=== PATIENT | male | born 1975 | race Caucasian/White ===

== ENCOUNTER 2023-10-27 09:18 | Emergency (ER) | payer BC, SELFPAY ==
[2023-10-27 09:49] VITALS: BP 108/80; PULSE 74; RESP 16; TEMP 36.7; O2SAT 98; BMI 21.7
[2023-10-27 10:53] LABS: MANUAL DIFF FLAG NO
[2023-10-27 10:55] LABS: Basophils Absolute Auto 0.1 X10*3/uL (0.0-0.2); Basophils Percent Auto 1.1 % (0-2); Eosinophils Absolute Auto 0.1 X10*3/uL (0.0-0.4); Eosinophils Percent Auto 2.2 % (0-4); Hematocrit 44.2 % (42.0-52.0); Hemoglobin 15.5 g/dl (14.0-18.0); Imm Gran Abs Auto 0.02 X10*3/uL (0.00-0.03); Imm Gran Pct Auto 0.4 % (0.0-0.4); Lymphocytes Absolute Auto 1.3 X10*3/uL (1.2-4.9); Mean Corpuscular HGB Conc 35.1 g/dl (31.0-36.0); Mean Corpuscular Hemoglobin 29.3 pg (27.0-33.0); Mean Corpuscular Volume 83.6 fL (80.0-98.0); Mean Platelet Volume 9.7 fL (9.4-12.4); Monocytes Absolute Auto 0.5 X10*3/uL (0.1-1.2); Neutrophils Absolute Auto 2.6 x10*3/uL (2.0-8.3); Neutrophils Percent Auto 58.3 % (45-73); Platelet Count 227 X10*3/uL (160-400); Red Blood Count 5.29 X10*6/uL (4.60-5.80); Red Cell Distribution Width 12.4 % (11.0-16.0); White Blood Count 4.5 X10*3/uL (4.8-10.8)
[2023-10-27 11:10] LABS: Alanine Aminotransferase 14 U/L (0-40); Albumin Level 4.5 g/dL (3.5-5.0); Alkaline Phosphatase 38 U/L (39-117); Anion Gap 11 (12-20); Aspartate Amino Transferase 16 U/L (5-37); Bilirubin Total 0.9 mg/dL (0.0-1.0); Blood Urea Nitrogen 8 mg/dL (9-16); Calcium 9.3 mg/dL (8.4-10.2); Carbon Dioxide 29 mmol/L (22-29); Chloride 105 mmol/L (96-108); Creatinine Clr Calc Pharmacy 116.7; Estimated Glomerular Filt Rate > 60; Glucose Random 96 mg/dL (60-115); Lipase 27 U/L (8-78); Potassium 4.3 mmol/L (3.3-5.1); Sodium 141 mmol/L (135-145); Total Protein 6.9 g/dL (6.5-8.0)
== END 2023-10-27 18:33 | disposition left against medical advice (07) ==
PROVIDERS: Emergency Provider Emergency Medicine; PCP Internal Medicine
DX: R10.9 Unspecified abdominal pain (principal)
CPT/HCPCS: 36415; 80053; 83690; 85025; 99281; 99283

== ENCOUNTER 2023-12-23 10:16 | Outpatient (AMB) | payer BC, SELFPAY ==
[2023-12-23 10:19] VITALS: BP 110/70; PULSE 75; O2SAT 97; BMI 21.3
--- NOTE | 2023-12-23 10:19 | MHC.PC.OV ---
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 Accompanied by: Self / Same As Patient Allergies No Known Allergies [No Known Allergies*] Allergy (Verified 12/23/23 10:43) Medication List - Last Reconciled 12/23/23 by Edison Coreas MD psyllium husk (Metamucil) 1 tbsp PO BID Tobacco use date assessed: 12/23/23 Dental Screening Dental Screen Date: 12/23/23 Did you have a dental visit in the last 12 months?: Yes Did you have a dental problem in the last 6 months where you did not have access to dental care?: No Was dental information given to patient?: Patient has dentist HPI NPV/requesting phy HPI Details Patient comes in to establish care - is a new patient to the practice Patient states that he used to see Dr. Mccabe but he has not been back to see him in over 15 years as he states that he was doing very well without any issues until recently Relates that he has been experiencing frequent/recurrent epigastric pains for at least the past 3 months He denies any associated nausea or vomiting with his abdominal pain He reportedly went to the ER at [facility] for the same complaint about a month ago and had an abdominal CT done that supposedly came out negative He tried to get in to see gastroenterology in a couple of places locally but was advised that he will need to get a referral from his PCP first States that he was finally able to schedule an appointment with a truck driver salesperson up in [place] who did not require a PCP referral - states that he was seen yesterday and advised that they will be scheduling him for EGD as well as a screening colonoscopy soon Notes that his stools have also been somewhat irregular in appearance lately although he reports having bowel movements daily (sometimes more than once a day and feels like he is going more than normal) States that he has tried taking OTC Miralax and Pepcid recently with no significant relief or improvement of his symptoms He has been taking OTC Metamucil BID more recently and states that this seems to be helping slightly Adds that he also ran into some poison bryant this past weekend while working out in his yard and he currently has some itchy poison bryant rash all over, especially over his abdomen and a few lesions on both of his forearms He denies any headaches or dizziness Denies any chest pains, no SOB He also denies any acute urinary symptoms [facility] Medical History (Updated 12/23/23 @ 11:08 by Edison Coreas MD) No pertinent past medical history Surgical History (Updated 12/23/23 @ 10:47 by Edison Coreas MD) No pertinent past surgical history Family History (Updated 12/23/23 @ 10:24 by KARL Gaona) Father Prostate cancer Social History (Updated 12/23/23 @ 10:27 by KARL Gaona) Alcohol intake: current Alcohol intake frequency: other Patient Tobacco Use Status: Never used Tobacco e-Cigarette/Vaping Use: Never Used Current occupational status: employed Cognitive needs: No Hearing needs: No Vision needs: No Questionnaire PHQ-9 Over the last 2 weeks, how often have you been bothered by any of the following problems? 1. Little interest or pleasure in doing things: not at all 2. Feeling down, depressed, or hopeless: not at all 3. Trouble falling or staying asleep, or sleeping too much: not at all 4. Feeling tired or having little energy: not at all 5. Poor appetite or overeating: not at all 6. Feeling bad about yourself - or that you are a failure or have let yourself or your family down: not at all 7. Trouble concentrating on things, such as reading the newspaper or watching television: not at all 8. Moving or speaking so slowly that other people could have noticed. Or the opposite - being so fidgety or restless that you have been moving around a lot more than usual: not at all 9. Thoughts that you would be better off or of hurting yourself in some way: not at all Total score: 0 Depression Screening Interpretation: Negative Depression Screening Done: Yes 89056 - PHQ-9 Billing: Yes Source: Developed by Drs. Afshin Sotelo, Leila Nogueira, Chuy Schaffer and colleagues, with an educational liam from [employer]. Thrive Questionnaire Date Thrive assessed: 12/23/23 I am a: Patient What is your living situation today?: I have a steady place to live Within the past 12 months, did the food you bought not last and you didn't have the money to get more?: Never true Within the past 12 months, did you worry whether your food would run out before you got money to buy more?: Never true Do you have trouble paying for medicines?: No Do you have trouble getting transportation to medical appointments?: No Do you have trouble paying your heating and electricity bill?: No Do you have trouble taking care of your child, family member or friend?: No Do you have trouble with day-to-day activities such as bathing, preparing meals, shopping, managing finances, etc.?: No Are you currently unemployed and looking for a job?: No Are you interested in more education?: No Please select the resources that you would like help with: None Currently or been in a relationship where the following occur: no concerns reported THRIVE Score: 0 AUDIT C Alcohol Use Questionnaire (AUDIT-C) 1. How often do you have a drink containing alcohol?: Never 3. How often do you have six or more drinks on one occasion?: Never Total Score: 0 Score Reviewed/Action Taken: Yes NUSRAT-7 AMB Questionnaire NUSRAT-7 Date NUSRAT - 7 assessed: 12/23/23 Feeling nervous, anxious, or on edge: 0 = Not at all Not being able to stop or control worryin = Not at all Worrying too much about different things: 0 = Not at all Trouble relaxin = Not at all Being so restless that it is hard to sit still: 0 = Not at all Becoming easily annoyed or irritable: 0 = Not at all Feeling afraid as if something awful might happen: 0 = Not at all Total NUSRAT-7 score (0-4 normal; 5-9 mild; 10-14 moderate; 15-21 severe): 0 Source: Developed by Drs. Afshin Sotelo, Leila Nogueira, Chuy Schaffer and colleagues, with an educational liam from [employer]. Review of Systems Const Denies chills, Denies fatigue, Denies fever(s), Denies headache(s), Denies malaise and Denies weakness Eyes Denies blurry vision, Denies change in vision, Denies irritation and Denies itchy eyes ENT Denies dysphagia, Denies dizziness, Denies otalgia, Denies headache(s), Denies nasal congestion, Denies neck pain, Denies odynophagia and Denies sore throat Card Denies chest pain, Denies rapid heart rate, Denies irregular heart rhythm, Denies palpitations and Denies dyspnea Resp Denies chest congestion, Denies cough, Denies dyspnea and Denies wheezing GI Reports as per HPI, Reports abdominal pain (recurrent, over the epigastric area for the past month or so), Denies bloating, Denies hematochezia, Reports constipation (see HPI for details), Denies dysphagia, Denies heartburn, Denies diarrhea, Denies nausea, Denies odynophagia and Denies vomiting Denies hematuria, Denies difficulty urinating, Denies dysuria, Denies urinary frequency and Denies urinary urgency Musc Denies back pain, Denies arthralgias, Denies joint swelling, Denies muscle weakness and Denies neck pain Skin/Breast Denies change in pigmentation, Reports lesions, Reports rash (scattered poison bryant rash all over, especially over his abdomen) and Denies unusual bruising Neuro Denies dizziness, Denies headache(s), Denies paresthesias and Denies weakness Endo Denies fatigue and Denies palpitations Aller/Immun Denies itchy eyes and Denies wheezing Physical exam (Primary Care) Vital Signs: Last Vital Signs Pulse 75 12/23/23 10:19 BP 110/70 12/23/23 10:19 Pulse Ox 97 12/23/23 10:19 Oxygen Delivery Method Room Air 12/23/23 10:19 BMI result Body Mass Index 21.3 Tobacco/Smoking Status: Tobacco use Status Tobacco use date assessed 12/23/23 12/23/23 10:22 Patient Tobacco Use Status Never used Tobacco 12/23/23 10:27 e-Cigarette/Vaping Use Never Used 12/23/23 10:27 PHQ-9: PHQ-9 Score PHQ-9: Total score 0 12/23/23 10:22 Depression Screening Interpretation: Negative Thrive Assessment: Date of Thrive Assessment Date Thrive assessed 12/23/23 12/23/23 10:22 Currently or been in a relationship where the following occur: no concerns reported Const General: no acute distress, alert and awake Orientation/consciousness: patient oriented x3 [facility] Head: Yes normocephalic and Yes atraumatic Ears: external ears normal, TM's normal bilaterally and EAC's normal General nose exam: No nasal discharge present Face and sinus: Yes normal facial exam and Yes sinuses nontender Teeth and gingiva: dentition normal Throat: Yes posterior oropharynx normal and Yes tonsils normal (no TP congestion) Eyes Eyelids: Yes eyelids normal Conjunctivae: conjunctivae normal Pupils: Equal, round and reactive pupils present EOM: EOMs intact bilaterally Neck Neck: Yes no lymphadenopathy and Yes supple Thyroid: Thyroid normal Resp Auscultation: clear to auscultation bilaterally, no rales and no wheezes Cardio Rate: regular rate Rhythm: regular rhythm Heart sounds: no murmurs GI Palpation (GI): Soft to palpation, nontender (but (+) mild epigastric discomfort on deep palpation), no guarding, No hepatosplenomegaly present and No Rebound tenderness present Auscultation: normal bowel sounds General: Yes no CVA tenderness Back/Spine/Pelvis Back: no CVA tenderness Thoracic/Lumbar Spine: thoracic and lumbar spine normal to inspection Skin Other: (+) large area of erythematous patchy rash over his entire abdomen and a few scattered erythematous papular lesions over both forearms Neuro General: patient oriented x3, moves all extremities, no focal motor deficits and CN's II-XI intact bilaterally Cranial nerves: Yes Equal, round and reactive pupils present Cognition (Neuro): normal cognition Gait exam (Neuro): Normal gait present Extrem General: Yes no clubbing, cyanosis or edema Assessment and Plan Assessment & Plan (1) Annual physical exam: Code(s): Z00.00 - Encounter for general adult medical examination without abnormal findings Plan: Check labs He is currently awaiting scheduling for his screening colonoscopy with GI in [place] (2) Gastritis: Code(s): K29.70 - Gastritis, unspecified, without bleeding Qualifiers: Gastritis type: unspecified gastritis Chronicity: unspecified Gastritis bleeding: without bleeding Qualified Code(s): K29.70 - Gastritis, unspecified, without bleeding Plan: Discussed dietary restrictions Will start him for now on Omeprazole 20 mg QD Reports that he was seen by GI in [place] yesterday and was advised that they will be scheduling him for EGD and colonoscopy soon for further evaluation (3) Constipation: Code(s): K59.00 - Constipation, unspecified Qualifiers: Constipation type: unspecified constipation type Qualified Code(s): K59.00 - Constipation, unspecified Plan: Patient is encouraged on increased oral fluids and dietary fiber to help regulate his bowel movements better Can continue with OTC Metamucil powder BID for now Will be scheduled also for screening colonoscopy by GI, whom he just saw in [place] yesterday (4) Poison bryant dermatitis: Code(s): L23.7 - Allergic contact dermatitis due to plants, except food Plan: Will start him on Prednisone 40 mg QD x 5 days He is instructed to take some OTC Benadryl as well - can take 25 mg 1 to 2 tablets TID PRN until the rash and itching clears up but cautioned that the Rx can cause drowsiness Plan Follow up in 6 months Orders: Orders Complete Blood Count Auto Diff Today D64.9 - Anemia, unspecified, Z00.00 - Encounter for general adult medical examination without abnormal findings Comprehensive [place]. Panel Fast Today E78.00 - Pure hypercholesterolemia, unspecified, Z00.00 - Encounter for general adult medical examination without abnormal findings Lipid Panel Today E78.00 - Pure hypercholesterolemia, unspecified, Z00.00 - Encounter for general adult medical examination without abnormal findings Vitamin D 25-OH Total Today E55.9 - Vitamin D deficiency, unspecified, Z00.00 - Encounter for general adult medical examination without abnormal findings Hemoglobin A1c Today E11.9 - Type 2 diabetes mellitus without complications, Z00.00 - Encounter for general adult medical examination without abnormal findings TSH reflex Free T4 Today E78.00 - Pure hypercholesterolemia, unspecified, Z00.00 - Encounter for general adult medical examination without abnormal findings UA CC w/rflx Micro + Cult Today R30.0 - Dysuria, Z00.00 - Encounter for general adult medical examination without abnormal findings Medications: New omeprazole 20 mg PO DAILY 30 days 30 caps 3RF K29.70 - Gastritis, unspecified, without bleeding prednisone 40 mg (2 x 20 mg) PO DAILY 5 days 10 tabs 0RF L23.7 - Allergic contact dermatitis due to plants, except food Coding Level of Care Code New Pt Prev Care 40-64y(24818) Diagnoses Annual physical exam Z00.00 Gastritis without bleeding, unspecified chronicity, unspecified gastritis type K29.70 Gastritis type: unspecified gastritis Chronicity: unspecified Gastritis bleeding: without bleeding Constipation, unspecified constipation type K59.00 Constipation type: unspecified constipation type Poison bryant dermatitis L23.7
== END 2023-12-23 11:30 | disposition home or self-care (01) ==
PROVIDERS: PCP Internal Medicine; Visit Provider Internal Medicine
DX: Z00.00 Encounter for general adult medical examination without abnormal findings (principal); K29.70 Gastritis, unspecified, without bleeding; K59.00 Constipation, unspecified; L23.7 Allergic contact dermatitis due to plants, except food
CPT/HCPCS: 99386

== ENCOUNTER 2024-01-09 09:20 | Outpatient (REF) | payer BC, SELFPAY ==
[2024-01-09 09:31] LABS: MANUAL DIFF FLAG NO
[2024-01-09 10:28] LABS: Basophils Absolute Auto 0.1 X10*3/uL (0.0-0.2); Eosinophils Absolute Auto 0.2 X10*3/uL (0.0-0.4); Eosinophils Percent Auto 3.1 % (0-4); Hematocrit 44.3 % (42.0-52.0); Hemoglobin 15.2 g/dl (14.0-18.0); Imm Gran Abs Auto 0.02 X10*3/uL (0.00-0.03); Imm Gran Pct Auto 0.4 % (0.0-0.4); Lymphocytes Absolute Auto 1.3 X10*3/uL (1.2-4.9); Lymphocytes Percent Auto 25.6 % (20-40); Mean Corpuscular HGB Conc 34.3 g/dl (31.0-36.0); Mean Corpuscular Hemoglobin 29.1 pg (27.0-33.0); Mean Corpuscular Volume 84.9 fL (80.0-98.0); Mean Platelet Volume 10.3 fL (9.4-12.4); Monocytes Absolute Auto 0.5 X10*3/uL (0.1-1.2); Neutrophils Absolute Auto 2.9 x10*3/uL (2.0-8.3); Neutrophils Percent Auto 59.9 % (45-73); Platelet Count 213 X10*3/uL (160-400); Red Blood Count 5.22 X10*6/uL (4.60-5.80); Red Cell Distribution Width 12.5 % (11.0-16.0); White Blood Count 4.9 X10*3/uL (4.8-10.8)
[2024-01-09 10:33] LABS: Estimated Average Glucose 103 mg/dL; Hemoglobin A1c % 5.2 % (<6.0)
[2024-01-09 11:12] LABS: Appearance Urine Clear; Color Urine Yellow; Glucose Urine UA Negative (Negative); Leukocyte Esterase Urine Negative (Negative); Nitrite Urine Negative (Negative); PH 6.5 (5.0-9.0); Urine Blood Negative (Negative); Urine Ketones Negative (Negative); Urine Protein Negative (Neg-Trace)
[2024-01-09 11:33] LABS: Alanine Aminotransferase 15 U/L (0-40); Albumin Level 4.4 g/dL (3.5-5.0); Alkaline Phosphatase 38 U/L (39-117); Anion Gap 13 (12-20); Aspartate Amino Transferase 15 U/L (5-37); Bilirubin Total 0.7 mg/dL (0.0-1.0); Blood Urea Nitrogen 18 mg/dL (9-16); Calcium 9.6 mg/dL (8.4-10.2); Carbon Dioxide 26 mmol/L (22-29); Chloride 106 mmol/L (96-108); Cholesterol 197 mg/dL (<200); Estimated Glomerular Filt Rate > 60; Glucose Fasting 93 mg/dL (60-99); HDL Cholesterol 58 mg/dL (>40); LDL Cholesterol Calculated 129 mg/dL (<100); Sodium 141 mmol/L (135-145); Total Protein 6.8 g/dL (6.5-8.0); Triglycerides 50 mg/dL (<150)
[2024-01-09 11:51] LABS: TSH reflex Free T4 2.24 uIU/mL (0.32-4.0); Vitamin D 25-OH Total 36.3 ng/mL (>30)
== END 2024-01-09 09:21 | disposition home or self-care (01) ==
LOC: HO.LAB 09:20
PROVIDERS: PCP Internal Medicine; Visit Provider Internal Medicine
DX: Z00.00 Encounter for general adult medical examination without abnormal findings (principal); E78.00 Pure hypercholesterolemia, unspecified; D64.9 Anemia, unspecified; E55.9 Vitamin D deficiency, unspecified; E11.9 Type 2 diabetes mellitus without complications; R30.0 Dysuria
CPT/HCPCS: 36415; 80053; 80061; 81003; 82306; 83036; 84443; 85025

== ENCOUNTER 2024-06-28 16:34 | Outpatient (AMB) | payer BC, SELFPAY ==
[2024-06-28 16:47] VITALS: BP 108/86; PULSE 80; O2SAT 97; BMI 20.6
--- NOTE | 2024-06-28 16:47 | A.OFFPC_ITS ---
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 Accompanied by: Self / Same As Patient Allergies No Known Allergies [No Known Allergies*] Allergy (Verified 06/28/24 17:02) Medication List - Last Reconciled 06/28/24 by Edison Coreas MD famotidine 20 mg PO BID PRN omeprazole 20 mg PO DAILY 30 days psyllium husk (Metamucil) 1 tbsp PO BID Tobacco use date assessed: 12/23/23 Dental Screening Dental Screen Date: 12/23/23 HPI gastritis HPI Details Patient comes in today for his follow-up visit States that he feels okay He had his EGD and colonoscopy done back on 03/17/2024 - was found to have gastritis on EGD and has since been started on famotidine 20 mg BID PRN in addition to his omeprazole 20 mg QD His colonoscopy came back normal except for some internal hemorrhoids He also reportedly had some biopsies done from his gastric mucosa and duodenum as well as his colon, all of which came back normal He denies any headaches or dizziness Denies any chest pains, no increased shortness of breath No nausea/vomiting, no abdominal pain - states that his GI symptoms have improved a lot with his Rx No change in bowel habits noted PFSH Medical History (Updated 06/29/24 @ 03:10 by Edison Coreas MD) Poison bryant dermatitis Gastritis Surgical History (Updated 06/29/24 @ 03:11 by Edison Coreas MD) History of esophagogastroduodenoscopy (EGD) History of colonoscopy Family History Father Prostate cancer Social History Housing: House Alcohol intake: current Alcohol intake frequency: other Patient Tobacco Use Status: Never used Tobacco e-Cigarette/Vaping Use: Never Used Current occupational status: employed Cognitive needs: No Hearing needs: No Vision needs: No Questionnaire Thrive Questionnaire Date Thrive assessed: 12/23/23 NUSRAT-7 AMB Questionnaire NUSRAT-7 Date NUSRAT - 7 assessed: 12/23/23 Source: Developed by Drs. Afshin Sotelo, Leila Nogueira, Chuy Schaffer and colleagues, with an educational liam from [employer]. Review of Systems Const Denies chills, Denies fatigue, Denies fever(s) and Denies headache(s) ENT Denies dysphagia, Denies dizziness, Denies otalgia, Denies headache(s), Denies neck pain, Denies odynophagia and Denies sore throat Card Denies chest pain, Denies irregular heart rhythm, Denies palpitations and Denies dyspnea Resp Denies chest congestion, Denies cough and Denies dyspnea GI Denies abdominal pain, Denies hematochezia, Reports constipation, Denies dysphagia, Reports heartburn (at times), Denies diarrhea, Denies nausea, Denies odynophagia and Denies vomiting Denies hematuria, Denies difficulty urinating, Denies dysuria and Denies urinary frequency Musc Denies back pain, Denies arthralgias and Denies neck pain Neuro Denies dizziness, Denies headache(s) and Denies paresthesias Endo Denies fatigue and Denies palpitations Physical exam (Primary Care) Vital Signs: Last Vital Signs Pulse 80 06/28/24 16:47 BP 108/86 06/28/24 16:47 Pulse Ox 97 06/28/24 16:47 Oxygen Delivery Method Room Air 06/28/24 16:47 BMI result Body Mass Index 20.6 Tobacco/Smoking Status: Tobacco use Status Tobacco use date assessed 12/23/23 06/28/24 16:48 Patient Tobacco Use Status Never used Tobacco 06/28/24 16:48 e-Cigarette/Vaping Use Never Used 06/28/24 16:48 Thrive Assessment: Date of Thrive Assessment Date Thrive assessed 12/23/23 06/28/24 16:48 Const General: no acute distress and alert HENMT Ears: TM's normal bilaterally and EAC's normal Throat: Yes posterior oropharynx normal and Yes tonsils normal (no TP congestion) Neck Neck: Yes no lymphadenopathy and Yes supple Thyroid: Thyroid normal Resp Auscultation: clear to auscultation bilaterally, no rales and no wheezes Cardio Rate: regular rate Rhythm: regular rhythm Heart sounds: no murmurs GI Palpation (GI): Soft to palpation and nontender Auscultation: normal bowel sounds General: Yes no CVA tenderness Back/Spine/Pelvis Back: no CVA tenderness Thoracic/Lumbar Spine: thoracic and lumbar spine normal to inspection and No lumbar spinal tenderness Skin Rashes: no rashes Extrem General: Yes no clubbing, cyanosis or edema Office Procedures Flu Questionnaire Does the patient have a severe egg allergy?: No Immunizations Fluarix Triv [id number] (PF) 45 mcg (15 mcg x 3)/0.5 mL IM syringe Performing Provider: Edison Coreas MD [facility] Documented (not given) by: CHRISTOPHER Cooper on 06/28/24 16:49 Reason Not Given: Patient Refused Coding Level of Care Code Est Pt Level 3 (17899) Diagnoses Gastritis without bleeding, unspecified chronicity, unspecified gastritis type K29.70 Chronicity: unspecified Gastritis bleeding: without bleeding Gastritis type: unspecified gastritis Constipation, unspecified constipation type K59.00 Constipation type: unspecified constipation type Assessment & Plan Assessment & Plan (1) Gastritis: Code(s): K29.70 - Gastritis, unspecified, without bleeding Category: Medical Qualifiers: Chronicity: unspecified Gastritis bleeding: without bleeding Gastritis type: unspecified gastritis Qualified Code(s): K29.70 - Gastritis, unspecified, without bleeding Plan: Dietary restrictions reinforced EGD done in March 2024 revealed (+) findings of gastritis Biopsies done during his EGD have reportedly come back negative Continue Omeprazole 20 mg QD and Famotidine 20 mg BID PRN Follow up with GI as scheduled (2) Constipation: Code(s): K59.00 - Constipation, unspecified Category: Medical Qualifiers: Constipation type: unspecified constipation type Qualified Code(s): K59.00 - Constipation, unspecified Plan: Patient is encouraged again on increased oral fluids and dietary fiber Continue Metamucil BID PRN Plan To return in December 2024 for his next annual physical examination Patient is reminded to try getting his labs done before he comes in for his annual physical exam in December 2024 Orders: Orders Lipid Panel 6 Months E78.00 - Pure hypercholesterolemia, unspecified, Z00.00 - Encounter for general adult medical examination without abnormal findings UA CC w/rflx Micro + Cult 6 Months R30.0 - Dysuria, Z00.00 - Encounter for general adult medical examination without abnormal findings Influenza [id number] Immunization 06/28/24 Z23 - Encounter for immunization Complete Blood Count Auto Diff 6 Months D64.9 - Anemia, unspecified, Z00.00 - Encounter for general adult medical examination without abnormal findings Comprehensive [place]. Panel Fast 6 Months E78.00 - Pure hypercholesterolemia, unspecified, Z00.00 - Encounter for general adult medical examination without abnormal findings TSH reflex Free T4 6 Months E78.00 - Pure hypercholesterolemia, unspecified, Z00.00 - Encounter for general adult medical examination without abnormal f indings Vitamin D 25-OH Total 6 Months E55.9 - Vitamin D deficiency, unspecified, Z00.00 - Encounter for general adult medical examination without abnormal findings
== END 2024-06-28 17:14 | disposition home or self-care (01) ==
PROVIDERS: PCP Internal Medicine; Visit Provider Internal Medicine
DX: K29.70 Gastritis, unspecified, without bleeding (principal); K59.00 Constipation, unspecified

== ENCOUNTER → 2024-06-28 16:34 | Outpatient (BNVA) | payer BC, SELFPAY | PROVIDERS: PCP Internal Medicine; Visit Provider Internal Medicine | DX: K29.70 Gastritis, unspecified, without bleeding (principal); K59.00 Constipation, unspecified; Z79.899 Other long term (current) drug therapy | CPT/HCPCS: 90471 ==

== ENCOUNTER 2024-07-30 16:22 | Outpatient (AMB) | payer BC, SELFPAY ==
--- NOTE | 2024-07-30 16:23 | MHC.PC.OV ---
Intake Visit Reasons: Itchy eye irritation/ Possible pink eye Tripe Washer Required: No Accompanied by: Self / Same As Patient Allergies No Known Allergies [No Known Allergies*] Allergy (Verified 07/30/24 16:59) Medication List - Last Reconciled 07/30/24 by Edison Coreas MD famotidine 20 mg PO BID PRN omeprazole 20 mg PO DAILY 30 days polymyxin B sulf-trimethoprim 10,000 unit- 1 mg/mL 1 drp ophthalmic (eye) QID 7 days psyllium husk (Metamucil) 1 tbsp PO BID Tobacco use date assessed: 07/30/24 Dental Screening Dental Screen Date: 07/30/24 Did you have a dental visit in the last 12 months?: Yes Did you have a dental problem in the last 6 months where you did not have access to dental care?: No Was dental information given to patient?: Patient has dentist HPI Itchy eye irritation/ Possible pink eye HPI Details Patient's consultation today is done over video conference (iPhone/iPad/XbyMe/Pathgather) - this is a TELEHEALTH visit Patient's current medications have been reviewed and verified with patient and/or caregiver/proxy and have been updated accordingly in the medication list Patient reports experiencing symptoms of eye irritation and redness in both eyes for the past couple of days Relates (+) difficulty opening his eyes when waking up in the morning for the past day or two, though there is no significant crusting of his eyes noted States that his 9-month-old son was just diagnosed with conjunctivitis about a week ago, likely after exposure to someone with pinkeye at preschool, and his other child also came down with similar symptoms a couple of days later Additionally, patient describes experiencing symptoms mild sore throat and nasal congestion without fever He denies any chest pains, no increased SOB No nausea/vomiting, no abdominal pain No change in bowel habits noted States that he has been treating his symptoms with [id number] ibuprofen with some relief overall [facility] Medical History Poison bryant dermatitis Gastritis Surgical History History of esophagogastroduodenoscopy (EGD) History of colonoscopy Family History Father Prostate cancer Social History Housing: House Alcohol intake: current Alcohol intake frequency: other Patient Tobacco Use Status: Never used Tobacco e-Cigarette/Vaping Use: Never Used Current occupational status: employed Cognitive needs: No Hearing needs: No Vision needs: No Questionnaire PHQ-9 Over the last 2 weeks, how often have you been bothered by any of the following problems? 1. Little interest or pleasure in doing things: not at all 2. Feeling down, depressed, or hopeless: not at all 3. Trouble falling or staying asleep, or sleeping too much: not at all 4. Feeling tired or having little energy: not at all 5. Poor appetite or overeating: not at all 6. Feeling bad about yourself - or that you are a failure or have let yourself or your family down: not at all 7. Trouble concentrating on things, such as reading the newspaper or watching television: not at all 8. Moving or speaking so slowly that other people could have noticed. Or the opposite - being so fidgety or restless that you have been moving around a lot more than usual: not at all 9. Thoughts that you would be better off or of hurting yourself in some way: not at all Total score: 0 Depression Screening Interpretation: Negative Depression Screening Done: Yes 08832 - PHQ-9 Billing: Yes Source: Developed by Drs. Afshin Sotelo, Leila Nogueira, Chuy Schaffer and colleagues, with an educational liam from [employer]. Thrive Questionnaire Date Thrive assessed: 07/30/24 I am a: Patient What is your living situation today?: I have a steady place to live Within the past 12 months, did the food you bought not last and you didn't have the money to get more?: Never true Within the past 12 months, did you worry whether your food would run out before you got money to buy more?: Never true Do you have trouble paying for medicines?: No Do you have trouble getting transportation to medical appointments?: No Do you have trouble paying your heating and electricity bill?: No Do you have trouble taking care of your child, family member or friend?: No Do you have trouble with day-to-day activities such as bathing, preparing meals, shopping, managing finances, etc.?: No Are you currently unemployed and looking for a job?: No Are you interested in more education?: No Please select the resources that you would like help with: None Currently or been in a relationship where the following occur: No concerns reported THRIVE Score: 0 AUDIT C Alcohol Use Questionnaire (AUDIT-C) 1. How often do you have a drink containing alcohol?: Monthly or less 3. How often do you have six or more drinks on one occasion?: Less than monthly Total Score: 2 Score Reviewed/Action Taken: Yes NUSRAT-7 AMB Questionnaire NUSRAT-7 Date NUSRAT - 7 assessed: 07/30/24 Feeling nervous, anxious, or on edge: 0 = Not at all Not being able to stop or control worryin = Not at all Worrying too much about different things: 0 = Not at all Trouble relaxin = Not at all Being so restless that it is hard to sit still: 0 = Not at all Becoming easily annoyed or irritable: 0 = Not at all Feeling afraid as if something awful might happen: 0 = Not at all Total NUSRAT-7 score (0-4 normal; 5-9 mild; 10-14 moderate; 15-21 severe): 0 Source: Developed by Drs. Afsihn Sotelo, Leila Nogueira, Chuy Schaffer and colleagues, with an educational liam from [employer]. Review of Systems Const Denies chills, Denies fatigue, Denies fever(s) and Denies headache(s) Eyes Details: (+) redness and irritation of both eyes over the past couple of days Denies blurry vision and Denies eye discharge ENT Denies dysphagia, Denies dizziness, Denies otalgia, Denies headache(s), Reports nasal congestion, Denies odynophagia, Denies sinus pain and Reports sore throat (mild) Card Denies chest pain, Denies palpitations and Denies dyspnea Resp Reports chest congestion (mild), Reports cough (on and off, with clear to whitish phlegm at times), Denies dyspnea and Denies wheezing GI Denies abdominal pain, Denies constipation, Denies dysphagia, Denies heartburn, Denies diarrhea, Denies nausea, Denies odynophagia and Denies vomiting Denies dysuria, Denies nocturia and Denies urinary frequency Musc Denies back pain and Denies arthralgias Skin/Breast Denies rash Neuro Denies dizziness and Denies headache(s) Endo Denies fatigue and Denies palpitations Aller/Immun Denies wheezing Physical exam (Primary Care) Vital Signs: Physical examination is not performed as visit / consultation today is done over videoconference - Telehealth visit All physical findings indicated here, if present, are as per patient's and / or caregivers / proxy's report and visual inspection over videoconference, if appropriate or applicable Tobacco/Smoking Status: Tobacco use Status Tobacco use date assessed 07/30/24 07/30/24 16:25 Patient Tobacco Use Status Never used Tobacco 07/30/24 16:25 e-Cigarette/Vaping Use Never Used 07/30/24 16:25 PHQ-9: PHQ-9 Score PHQ-9: Total score 0 07/30/24 17:00 Depression Screening Interpretation: Negative Thrive Assessment: Date of Thrive Assessment Date Thrive assessed 07/30/24 07/30/24 16:25 Currently or been in a relationship where the following occur: No concerns reported Telehealth Telehealth Telehealth Platform: Telephone ([employer] ) Location of provider rendering services: practice address Location of patient: address on file Patient Identification confirmed using: Name, : Yes Telehealth method: video (Iphone - OrderGroove) Patient verbally consented to treatment: Yes Patient verbally consented to billing insurance company: Yes Patient informed of any privacy concerns related to visit: Yes Minutes spent on Phone/Video with Pt.: 16 Coding Level of Care Code Tele Est Pt Level 3 (76862) Diagnoses Acute conjunctivitis of both eyes, unspecified acute conjunctivitis type H10.33 Acute conjunctivitis type: unspecified Viral upper respiratory tract infection J06.9 URI type: unspecified viral URI Additional Codes PHQ-9 - 47255 - PHQ-9 Billing: Yes ([id number]) Assessment & Plan Assessment & Plan (1) Conjunctivitis, acute, bilateral: Code(s): H10.33 - Unspecified acute conjunctivitis, bilateral Category: Medical Qualifiers: Acute conjunctivitis type: unspecified Qualified Code(s): H10.33 - Unspecified acute conjunctivitis, bilateral Plan: Will start patient empirically on Polytrim eyedrops 1 drop to each eye QID x 7 days (2) Upper respiratory tract infection: Code(s): J06.9 - Acute upper respiratory infection, unspecified Category: Medical Qualifiers: URI type: unspecified viral URI Qualified Code(s): J06.9 - Acute upper respiratory infection, unspecified Plan: He is instructed to just continue with OTC cough/cold meds PRN for symptomatic relief He is also advised to call if his symptoms get worse despite current Tx/Mx over the next week or two Plan To return as scheduled in December 2024 for his annual physical examination Medications: New polymyxin B sulf-trimethoprim 10,000 unit- 1 mg/mL 1 drp ophthalmic (eye) QID 10 mL 0RF 7 days
== END 2024-07-30 18:12 ==
LOC: HO.HMCH 16:22
PROVIDERS: PCP Internal Medicine; Visit Provider Internal Medicine
DX: H10.33 Unspecified acute conjunctivitis, bilateral (principal); J06.9 Acute upper respiratory infection, unspecified

== ENCOUNTER → 2024-07-30 16:22 | Outpatient (BNVA) | payer BC, SELFPAY | PROVIDERS: PCP Internal Medicine; Visit Provider Internal Medicine | DX: H10.33 Unspecified acute conjunctivitis, bilateral (principal); J06.9 Acute upper respiratory infection, unspecified | CPT/HCPCS: 96127 ==

== ENCOUNTER 2024-12-20 16:11 | Outpatient (AMB) | payer OTHER, SELFPAY ==
[2024-12-20 16:13] VITALS: BP 112/72; PULSE 71; O2SAT 97; BMI 21.0
--- NOTE | 2024-12-20 16:13 | MHC.PC.OV ---
Vital Signs 12/20/24 16:13 Height 6 ft Weight 155 lb BMI 21.0 BP 112/72 Blood Pressure Location Lt brachial Position Sitting Pulse 71 Pulse Source Pulse Oximeter Pulse Oximetry (%) 97 Oxygen Delivery Method Room Air Intake Visit Reasons: annual exam Metaphysician Required: No Accompanied by: Self / Same As Patient Allergies No Known Allergies [No Known Allergies*] Allergy (Verified 12/20/24 17:00) Medication List - Last Reconciled 12/20/24 by Edison Coreas MD famotidine 20 mg PO BID PRN omeprazole 20 mg PO DAILY 30 days psyllium husk (Metamucil) 1 tbsp PO BID Tobacco use date assessed: 12/20/24 Dental Screening Dental Screen Date: 12/20/24 Did you have a dental visit in the last 12 months?: Yes Did you have a dental problem in the last 6 months where you did not have access to dental care?: No Was dental information given to patient?: Patient has dentist HPI annual exam HPI Details Patient comes in today for his annual physical examination States that he feels okay He denies any headaches or dizziness Denies any chest pains, no shortness of breath No nausea/vomiting, no abdominal pain No change in bowel habits noted He denies any acute urinary symptoms He was not able to get his previously ordered labs done yet - states that he will try to get these done NICA States that he had a colonoscopy done at [facility] about 10 years ago and should now be due for his repeat colonoscopy - he has a follow up appointment scheduled with [facility] later this week on 12/24/2024 [facility] Medical History Poison bryant dermatitis Gastritis Surgical History History of esophagogastroduodenoscopy (EGD) History of colonoscopy Family History Father Prostate cancer Social History Housing: House Alcohol intake: current Alcohol intake frequency: other Patient Tobacco Use Status: Never used Tobacco e-Cigarette/Vaping Use: Never Used Current occupational status: employed Cognitive needs: No Hearing needs: No Vision needs: No Questionnaire PHQ-9 Over the last 2 weeks, how often have you been bothered by any of the following problems? 1. Little interest or pleasure in doing things: not at all 2. Feeling down, depressed, or hopeless: not at all 3. Trouble falling or staying asleep, or sleeping too much: not at all 4. Feeling tired or having little energy: not at all 5. Poor appetite or overeating: not at all 6. Feeling bad about yourself - or that you are a failure or have let yourself or your family down: not at all 7. Trouble concentrating on things, such as reading the newspaper or watching television: not at all 8. Moving or speaking so slowly that other people could have noticed. Or the opposite - being so fidgety or restless that you have been moving around a lot more than usual: not at all 9. Thoughts that you would be better off or of hurting yourself in some way: not at all Total score: 0 Depression Screening Interpretation: Negative Depression Screening Done: Yes 16781 - PHQ-9 Billing: Yes Source: Developed by Drs. Afshin Sotelo, Leila Nogueira, Chuy Schaffer and colleagues, with an educational liam from [employer]. Thrive Questionnaire Date Thrive assessed: 12/20/24 I am a: Patient What is your living situation today?: I have a steady place to live Within the past 12 months, did the food you bought not last and you didn't have the money to get more?: Never true Within the past 12 months, did you worry whether your food would run out before you got money to buy more?: Never true Do you have trouble paying for medicines?: No Do you have trouble getting transportation to medical appointments?: No Do you have trouble paying your heating and electricity bill?: No Do you have trouble taking care of your child, family member or friend?: No Do you have trouble with day-to-day activities such as bathing, preparing meals, shopping, managing finances, etc.?: No Are you currently unemployed and looking for a job?: No Are you interested in more education?: No Please select the resources that you would like help with: None Currently or been in a relationship where the following occur: No concerns reported THRIVE Score: 0 AUDIT C Alcohol Use Questionnaire (AUDIT-C) 1. How often do you have a drink containing alcohol?: 2-4 times a month 2. How many drinks containing alcohol do you have on a typical day when you are drinking?: 1 or 2 3. How often do you have six or more drinks on one occasion?: Never Total Score: 2 Score Reviewed/Action Taken: Yes NUSRAT-7 AMB Questionnaire NURSAT-7 Date NUSRAT - 7 assessed: 12/20/24 Feeling nervous, anxious, or on edge: 1 = Several days Not being able to stop or control worryin = Not at all Worrying too much about different things: 0 = Not at all Trouble relaxin = Not at all Being so restless that it is hard to sit still: 1 = Several days Becoming easily annoyed or irritable: 0 = Not at all Feeling afraid as if something awful might happen: 0 = Not at all Total NUSRAT-7 score (0-4 normal; 5-9 mild; 10-14 moderate; 15-21 severe): 2 Source: Developed by Drs. Afshin Sotelo, Leila Nogueira, Chuy Schaffer and colleagues, with an educational liam from [employer]. Review of Systems Const Denies chills, Denies fatigue, Denies fever(s), Denies headache(s), Denies malaise and Denies weakness Eyes Denies blurry vision, Denies change in vision, Denies irritation and Denies itchy eyes ENT Denies dysphagia, Denies dizziness, Denies otalgia, Denies headache(s), Denies nasal congestion, Denies neck pain, Denies odynophagia and Denies sore throat Card Denies rapid heart rate, Denies irregular heart rhythm, Denies palpitations and Denies dyspnea Resp Denies chest congestion, Denies cough, Denies dyspnea and Denies wheezing GI Denies abdominal pain, Denies bloating, Denies constipation, Denies dysphagia, Denies heartburn, Denies diarrhea, Denies nausea, Denies odynophagia and Denies vomiting Denies hematuria, Denies difficulty urinating, Denies dysuria, Denies urinary frequency and Denies urinary urgency Musc Denies back pain, Denies arthralgias, Denies joint swelling, Denies muscle weakness and Denies neck pain Skin/Breast Denies change in pigmentation, Denies lesions, Denies rash and Denies unusual bruising Neuro Denies dizziness, Denies headache(s), Denies paresthesias and Denies weakness Endo Denies fatigue and Denies palpitations Aller/Immun Denies itchy eyes and Denies wheezing Physical exam (Primary Care) Vital Signs: Last Vital Signs Pulse 71 12/20/24 16:13 BP 112/72 12/20/24 16:13 Pulse Ox 97 12/20/24 16:13 Oxygen Delivery Method Room Air 12/20/24 16:13 BMI result Body Mass Index 21.0 Tobacco/Smoking Status: Tobacco use Status Tobacco use date assessed 12/20/24 12/20/24 16:20 Patient Tobacco Use Status Never used Tobacco 12/20/24 16:20 e-Cigarette/Vaping Use Never Used 12/20/24 16:20 PHQ-9: PHQ-9 Score PHQ-9: Total score 0 12/20/24 17:05 Depression Screening Interpretation: Negative Thrive Assessment: Date of Thrive Assessment Date Thrive assessed 12/20/24 12/20/24 16:20 Currently or been in a relationship where the following occur: No concerns reported Const General: no acute distress, alert and awake Orientation/consciousness: patient oriented x3 HENMT Head: Yes normocephalic and Yes atraumatic Ears: external ears normal, TM's normal bilaterally and EAC's normal General nose exam: No nasal discharge present Face and sinus: Yes normal facial exam and Yes sinuses nontender Teeth and gingiva: dentition normal Throat: Yes posterior oropharynx normal and Yes tonsils normal (no TP congestion) Eyes Eyelids: Yes eyelids normal Conjunctivae: conjunctivae normal Pupils: Equal, round and reactive pupils present EOM: EOMs intact bilaterally Neck Neck: Yes no lymphadenopathy and Yes supple Thyroid: Thyroid normal Resp Auscultation: clear to auscultation bilaterally, no rales and no wheezes Cardio Rate: regular rate Rhythm: regular rhythm Heart sounds: no murmurs GI Palpation (GI): Soft to palpation, nontender and No hepatosplenomegaly present Auscultation: normal bowel sounds General: Yes no CVA tenderness Back/Spine/Pelvis Back: no CVA tenderness Thoracic/Lumbar Spine: thoracic and lumbar spine normal to inspection Skin Lesions: no lesions Rashes: no rashes Neuro General: patient oriented x3, moves all extremities, no focal motor deficits and CN's II-XI intact bilaterally Cranial nerves: Yes Equal, round and reactive pupils present Cognition (Neuro): normal cognition Gait exam (Neuro): Normal gait present Extrem General: Yes no clubbing, cyanosis or edema Coding Level of Care Code Est Pt Prev Care 40-64y(55870) Diagnoses Annual physical exam Z00.00 Gastritis without bleeding, unspecified chronicity, unspecified gastritis type K29.70 Gastritis type: unspecified gastritis Chronicity: unspecified Gastritis bleeding: without bleeding Additional Codes PHQ-9 - 92979 - PHQ-9 Billing: Yes ([id number]) Assessment & Plan Assessment & Plan (1) Annual physical exam: Code(s): Z00.00 - Encounter for general adult medical examination without abnormal findings Category: Medical Plan: Patient was not able to get his previously ordered labs done prior to his appointment today and he is instructed to try to get these done NICA to complete his physical exam today States that he had his colonoscopy last done about 10 years ago and should now be due for his repeat colonoscopy He goes to [facility] and has a follow up appt scheduled with them later this week (2) Gastritis: Code(s): K29.70 - Gastritis, unspecified, without bleeding Category: Medical Qualifiers: Gastritis type: unspecified gastritis Chronicity: unspecified Gastritis bleeding: without bleeding Qualified Code(s): K29.70 - Gastritis, unspecified, without bleeding Plan: Dietary restrictions reinforced Continue Omeprazole 20 mg QD and Famotidine 20 mg BID PRN Plan Follow up in 6 months
--- OUTSIDE RECORDS SUMMARY | 2024-12-20 16:13 | XMS_ITS | Clinical Summary ---
Author Organization [facility] it Address [address] [place] [address] Care Team Providers Care Telephone Lines Repairer Name Role Phone Unavailable Primary Care Provider Unavailabl e Social History Tobacco Use Types Packs/Day Years Used Date Smoking Tobacco: Never Assessed Sex and Gender Information Value Date Recorded Sex Assigned at Not on file Legal Sex Male 9:05 PM EST Gender Identity Not on file Sexual Orientation Not on file Plan of Treatment Health Maintenance Due Date Last Done Comments Hepatitis B Vaccines (1 of 3 - 19+ 3-dose series) 1996 Cholesterol Screening (Lipid Panel) 09/05/2023 Colorectal Cancer Screening: Colonoscopy 09/05/2023 Depression Screening 09/05/2023 HIV Screening 09/05/2023 Hepatitis C Screening 09/05/2023 Social Influencers of Health Screening 09/05/2023 COVID-19 Vaccine ( - 2023-2 5 season) 2024 Influenza Vaccine (Season Ended) 2025 DTaP,Tdap,and Td Vaccines (2 - Td or Tdap) 08/07/2033 08/07/2023 HIB Vaccines Aged Out No longer eligi ble based on patient's age to complete this topic HPV Vaccines Aged Out No longer eligi ble based on patient's age to complete this topic Hepatitis A Vaccines Aged Out No long er eligible based on patient's age to complete this topic IPV Vaccines Aged Out No longer eligi ble based on patient's age to complete this topic MMR Vaccines Aged Out No longer eligi ble based on patient's age to complete this topic Meningococcal ACWY Vaccine Aged Out N o longer eligible based on patient's age to complete this topic Meningococcal B Vaccine Aged Out No l onger eligible based on patient's age to complete this topic Pneumococcal Vaccine: Pediat rics (0 to 5 Years) and At-Risk Patients (6 to 64 Years) Aged Out No longer eligi ble based on patient's age to complete this topic RSV Immunization Patients Un israel 20 months Aged Out No longer eligible b ased on patient's age to complete this topic Varicella Vaccines Aged Out No longer eligible based on patient's age to complete this topic
== END 2024-12-20 17:10 | disposition home or self-care (01) ==
LOC: HO.HMCH 16:11
PROVIDERS: PCP Internal Medicine; Visit Provider Internal Medicine
DX: Z00.00 Encounter for general adult medical examination without abnormal findings (principal); K29.70 Gastritis, unspecified, without bleeding

== ENCOUNTER → 2024-12-20 16:11 | Outpatient (BNVA) | payer OTHER, SELFPAY | PROVIDERS: PCP Internal Medicine; Visit Provider Internal Medicine | DX: Z00.00 Encounter for general adult medical examination without abnormal findings (principal); K29.70 Gastritis, unspecified, without bleeding; Z79.899 Other long term (current) drug therapy | CPT/HCPCS: 96127 ==

== ENCOUNTER 2025-01-19 06:22 | Outpatient (REF) | payer OTHER, SELFPAY ==
[2025-01-19 06:40] LABS: MANUAL DIFF FLAG NO
[2025-01-19 07:26] LABS: Basophils Absolute Auto 0.1 X10*3/uL (0.0-0.2); Eosinophils Percent Auto 0.6 % (0-4); Hematocrit 44.3 % (42.0-52.0); Hemoglobin 15.5 g/dl (14.0-18.0); Imm Gran Abs Auto 0.02 X10*3/uL (0.00-0.03); Imm Gran Pct Auto 0.4 % (0.0-0.4); Lymphocytes Absolute Auto 1.3 X10*3/uL (1.2-4.9); Lymphocytes Percent Auto 23.9 % (20-40); Mean Corpuscular Hemoglobin 29.1 pg (27.0-33.0); Mean Corpuscular Volume 83.1 fL (80.0-98.0); Monocytes Absolute Auto 0.5 X10*3/uL (0.1-1.2); Monocytes Percent Auto 9.4 % (2-11); Neutrophils Absolute Auto 3.4 x10*3/uL (2.0-8.3); Neutrophils Percent Auto 64.7 % (45-73); Platelet Count 249 X10*3/uL (160-400); Red Blood Count 5.33 X10*6/uL (4.60-5.80); Red Cell Distribution Width 12.6 % (11.0-16.0); White Blood Count 5.2 X10*3/uL (4.8-10.8)
[2025-01-19 07:32] LABS: Appearance Urine Clear; Color Urine Yellow; Glucose Urine UA Negative (Negative); Leukocyte Esterase Urine Negative (Negative); Nitrite Urine Negative (Negative); Specific Gravity - Urine 1.015 (1.005-1.025); Urine Blood Negative (Negative); Urine Ketones 15 mg/dL (Negative); Urine Protein Negative (Neg-Trace)
[2025-01-19 08:15] LABS: Alanine Aminotransferase 23 U/L (0-40); Alkaline Phosphatase 44 U/L (39-117); Anion Gap 12 (12-20); Aspartate Amino Transferase 31 U/L (5-37); Bilirubin Total 1.6 mg/dL (0.0-1.0); Blood Urea Nitrogen 12 mg/dL (9-16); Calcium 9.5 mg/dL (8.4-10.2); Carbon Dioxide 28 mmol/L (22-29); Chloride 102 mmol/L (96-108); Cholesterol 188 mg/dL (<200); Estimated Glomerular Filt Rate > 60; Glucose Fasting 109 mg/dL (60-99); HDL Cholesterol 62 mg/dL (>40); LDL Cholesterol Calculated 117 mg/dL (<100); Potassium 3.6 mmol/L (3.3-5.1); Sodium 138 mmol/L (135-145); Total Protein 7.1 g/dL (6.5-8.0); Triglycerides 48 mg/dL (<150)
[2025-01-19 08:48] LABS: TSH reflex Free T4 1.73 uIU/mL (0.32-4.0); Vitamin D 25-OH Total 38.2 ng/mL (>30)
== END 2025-01-19 06:23 | disposition home or self-care (01) ==
LOC: HO.LAB 06:22
PROVIDERS: PCP Internal Medicine; Visit Provider Internal Medicine
DX: Z00.00 Encounter for general adult medical examination without abnormal findings (principal); R30.0 Dysuria; D64.9 Anemia, unspecified; E78.00 Pure hypercholesterolemia, unspecified; E55.9 Vitamin D deficiency, unspecified
CPT/HCPCS: 36415; 80053; 80061; 81003; 82306; 84443; 85025

== ENCOUNTER 2025-06-03 09:26 | Outpatient (AMB) | payer BC, SELFPAY ==
[2025-06-03 09:28] VITALS: BP 102/78; PULSE 98; O2SAT 98; BMI 19.4
--- NOTE | 2025-06-03 09:28 | MHC.PC.OV ---
Vital Signs 06/03/25 09:28 Height 6 ft Weight 143 lb BMI 19.4 BP 102/78 Blood Pressure Location Lt brachial Position Sitting Pulse 98 Pulse Source Pulse Oximeter Pulse Oximetry (%) 98 Oxygen Delivery Method Room Air Intake Visit Reasons: (L) hand/index finger swelling Continuous Miner Required: No Accompanied by: Self / Same As Patient Allergies No Known Allergies (No Known Allergies*) Allergy (Verified 06/03/25 10:00) Medication List - Last Reconciled 06/03/25 by Edison Coreas MD famotidine 20 mg PO BID PRN omeprazole 20 mg PO DAILY 30 days psyllium husk (Metamucil) 1 tbsp PO BID Tobacco use date assessed: 06/03/25 Dental Screening Dental Screen Date: 06/03/25 Did you have a dental visit in the last 12 months?: Yes Did you have a dental problem in the last 6 months where you did not have access to dental care?: No Was dental information given to patient?: Patient has dentist HPI (L) hand/index finger swelling HPI Details Patient comes in today for further evaluation of his left index finger, which he states swelled up last week and has been bothering him for over a week now Recalls that he was breaking up some wooden tree branches and clearing up his yard a couple of weeks ago when he ended up having a piece/sliver of wood go through his gloves and sticking into the base of his left index finger States that he pulled out the wooden piece immediately but he is not sure if there was any residual splinter left in his finger then Notes that his finger started swelling up a couple of hours later He then went to a local walk-in clinic run by [facility] the next day and was advised that he has cellulitis of his finger at the time and was started on oral Cefadroxil, which he is currently still on and has about 3 days of the medication left He is not sure if the medication is helping as he still feels some discomfort near the base of his finger where the wood went into his skin but the swelling in his finger has mostly subsided He denies any fever and states that he has no swelling of his left hand and is able to do most activities with his hand without any issues Adds that he lost his job a few months ago and is currently still unemployed States that he has been looking for a job for the past couple of months now but has not been successful and this is starting to bother him and he has not been able to sleep well at night for a while now He has even tried some OTC Melatonin recently but finds that it did not help at all Admits that he has been feeling increasingly anxious lately about not being able to find a job and is aware that his sleeping issues are most likely related to this No other acute complaints or symptoms are noted at this time He would also like to know how his labs came out a few months ago and possibly just cancel his originally scheduled appointment next month since he is being seen today [facility] Medical History Poison bryant dermatitis Gastritis Surgical History History of esophagogastroduodenoscopy (EGD) History of colonoscopy Family History Father Prostate cancer Social History Housing: House Alcohol intake: current Alcohol intake frequency: other Patient Tobacco Use Status: Never used Tobacco e-Cigarette/Vaping Use: Never Used Current occupational status: employed Cognitive needs: No Hearing needs: No Vision needs: No Questionnaire Thrive Questionnaire Date Thrive assessed: 12/13/24 I am a: Patient What is your living situation today?: I have a steady place to live Within the past 12 months, did the food you bought not last and you didn't have the money to get more?: Never true Within the past 12 months, did you worry whether your food would run out before you got money to buy more?: Never true Do you have trouble paying for medicines?: No Do you have trouble getting transportation to medical appointments?: No Do you have trouble paying your heating and electricity bill?: No Do you have trouble taking care of your child, family member or friend?: No Do you have trouble with day-to-day activities such as bathing, preparing meals, shopping, managing finances, etc.?: No Are you currently unemployed and looking for a job?: No Are you interested in more education?: No Please select the resources that you would like help with: None Currently or been in a relationship where the following occur: No concerns reported THRIVE Score: 0 AUDIT C Alcohol Use Questionnaire (AUDIT-C) 1. How often do you have a drink containing alcohol?: 2-4 times a month 2. How many drinks containing alcohol do you have on a typical day when you are drinking?: 1 or 2 3. How often do you have six or more drinks on one occasion?: Never Total Score: 2 Score Reviewed/Action Taken: Yes NUSRAT-7 AMB Questionnaire NUSRAT-7 Date NUSRAT - 7 assessed: 12/20/24 Source: Developed by Drs. Afshin Sotelo, Leila Nogueira, Chuy Schaffer and colleagues, with an educational liam from [employer]. Review of Systems Const Denies chills, Reports difficulty sleeping, Denies fatigue, Denies fever(s) and Denies headache(s) ENT Denies dysphagia, Denies dizziness, Denies otalgia, Denies headache(s), Denies neck pain, Denies odynophagia and Denies sore throat Card Denies chest pain, Denies palpitations and Denies dyspnea Resp Denies chest congestion, Denies cough and Denies dyspnea GI Denies abdominal pain, Denies constipation, Denies dysphagia, Denies heartburn, Denies diarrhea, Denies nausea, Denies odynophagia and Denies vomiting Denies difficulty urinating, Denies dysuria, Denies nocturia and Denies urinary frequency Musc Details: (+) some discomfort near the base of the left index finger - see HPI for details Denies back pain and Denies neck pain Skin/Breast Denies rash Neuro Denies dizziness and Denies headache(s) Psych Reports anxiety (see HPI) Endo Denies fatigue and Denies palpitations Physical exam (Primary Care) Vital Signs: Last Vital Signs Pulse 98 06/03/25 09:28 BP 102/78 06/03/25 09:28 Pulse Ox 98 06/03/25 09:28 Oxygen Delivery Method Room Air 06/03/25 09:28 BMI result Body Mass Index 19.4 Tobacco/Smoking Status: Tobacco use Status Tobacco use date assessed 06/03/25 06/03/25 09:34 Patient Tobacco Use Status Never used Tobacco 06/03/25 09:34 e-Cigarette/Vaping Use Never Used 06/03/25 09:34 Thrive Assessment: Date of Thrive Assessment Date Thrive assessed 12/13/24 06/03/25 09:34 Currently or been in a relationship where the following occur: No concerns reported Const General: no acute distress and alert [facility] Throat: Yes posterior oropharynx normal and Yes tonsils normal (no TP congestion) Neck Neck: Yes supple and No lymphadenopathy Thyroid: Thyroid normal Resp Auscultation: clear to auscultation bilaterally, no rales and no wheezes Cardio Rate: regular rate Rhythm: regular rhythm Heart sounds: no murmurs GI Palpation (GI): Soft to palpation and nontender Auscultation: normal bowel sounds General: Yes no CVA tenderness Back/Spine/Pelvis Back: no CVA tenderness Thoracic/Lumbar Spine: No lumbar spinal tenderness Skin Other: (+) small healed puncture sera at the base of the left index finger on the palmar aspect - area around the puncture wound is non-tender on palpation; no erythema, swelling or edema of the finger is noted Rashes: no rashes Extrem General: Yes no clubbing, cyanosis or edema Results Reviewed Results Reviewed: Laboratory Tests 01/09/24 01/09/24 01/19/25 09:23 09:30 06:35 WBC 4.9 Hgb 15.2 Hct 44.3 Plt Count 213 Sodium 141 Potassium 4.0 Creatinine 0.84 Estimated GFR > 60 Fasting Glucose 93 Hemoglobin A1c % 5.2 Calcium 9.6 AST 15 ALT 15 Triglycerides 50 Cholesterol 197 LDL Cholesterol, Calc 129 H HDL Cholesterol 58 25-OH Vitamin D Total 36.3 TSH 2.24 Ur Specific Henriette 1.020 1.015 Urine Protein Negative Negative Urine Glucose (UA) Negative Negative Urine Blood Negative Negative Urine Nitrite Negative Negative Ur Leukocyte Esterase Negative Negative 01/19/25 06:38 WBC 5.2 Hgb 15.5 Hct 44.3 Plt Count 249 Sodium 138 Potassium 3.6 Creatinine Estimated GFR > 60 Fasting Glucose 109 H Hemoglobin A1c % Calcium 9.5 AST 31 ALT 23 Triglycerides 48 Cholesterol 188 LDL Cholesterol, Calc 117 H HDL Cholesterol 62 25-OH Vitamin D Total 38.2 TSH 1.73 Ur Specific Henriette Urine Protein Urine Glucose (UA) Urine Blood Urine Nitrite Ur Leukocyte Esterase Coding Level of Care Code Est Pt Level 4 (81637) Diagnoses Cellulitis of left index finger L03.012 Gastritis without bleeding, unspecified chronicity, unspecified gastritis type K29.70 Chronicity: unspecified Gastritis bleeding: without bleeding Gastritis type: unspecified gastritis Insomnia, unspecified type G47.00 Insomnia type: unspecified Anxiety F41.9 Assessment & Plan Assessment & Plan (1) Cellulitis of left index finger: Code(s): L03.012 - Cellulitis of left finger Category: Medical Plan: Appears to be improving Continue Cefadroxil 500 mg BID to complete his original 7 days' course of the Abx Will start him additionally on Doxycycline 100 mg BID x 7 days for empiric Tx and advised that this should cover most of the potential pathogens that may have caused his recent finger infection Patient is reassured that whatever remaining splinter in his finger should be gradually expelled on their own in the next few months and there is no need to do any further incision or digging into his finger, which is what he was concerned about Have advised him to reach out to us [facility] if he is still having any problems or issues with his finger after he completes both of his Abx (2) Gastritis: Code(s): K29.70 - Gastritis, unspecified, without bleeding Category: Medical Qualifiers: Chronicity: unspecified Gastritis bleeding: without bleeding Gastritis type: unspecified gastritis Qualified Code(s): K29.70 - Gastritis, unspecified, without bleeding Plan: Dietary restrictions reinforced Continue Omeprazole 20 mg QD and Famotidine 20 mg BID PRN (3) Insomnia: Code(s): G47.00 - Insomnia, unspecified Category: Medical Qualifiers: Insomnia type: unspecified Qualified Code(s): G47.00 - Insomnia, unspecified Plan: Sleep hygiene discussed Patient has been advised that this is most likely tied in to his anxiety and should improve once he is able to find a job and start working again Will start him for now on Trazodone 50 mg Q HS PRN (4) Anxiety: Code(s): F41.9 - Anxiety disorder, unspecified Category: Medical Plan: This is mostly related to his recent loss of employment as he states that he has never been out of a job ever since he graduated from school many years ago and this is the first time in his life he is having a hard time getting a job Advised that this should improve once he is back to working again but he can call for referral for counseling/therapy at any time if he feels his anxiety is getting worse as he should benefit from some therapy sessions Plan Patient is advised that his previous lab results done a few months ago mostly came out okay except for a borderline high LDL cholesterol level and he should try to improve on this with a low cholesterol diet To return as scheduled on 12/26/2025 for his next annual physical examination Can cancel his appointment next month (June 2025) Orders: Orders Complete Blood Count Auto Diff 12/17/25 D64.9 - Anemia, unspecified, Z00.00 - Encounter for general adult medical examination without abnormal findings TSH reflex Free T4 12/17/25 E78.00 - Pure hypercholesterolemia, unspecified, Z00.00 - Encounter for general adult medical examination without abnormal findings Comprehensive [place]. Panel Fast 12/17/25 E78.00 - Pure hypercholesterolemia, unspecified, Z00.00 - Encounter for general adult medical examination without abnormal findings Lipid Panel 12/17/25 E78.00 - Pure hypercholesterolemia, unspecified, Z00.00 - Encounter for general adult medical examination without abnormal findings UA CC w/rflx Micro + Cult 12/17/25 R30.0 - Dysuria, Z00.00 - Encounter for general adult medical examination without abnormal findings Vitamin D 25-OH Total 12/17/25 E55.9 - Vitamin D deficiency, unspecified, Z00.00 - Encounter for general adult medical examination without abnormal findings Hemoglobin A1c 12/17/25 R73.01 - Impaired fasting glucose, Z00.00 - Encounter for general adult medical examination without abnormal findings Medications: New doxycycline hyclate 100 mg PO BID 14 caps 0RF 7 days trazodone 50 mg PO BEDTIME PRN 30 tabs 0RF sleep 30 days
--- OUTSIDE RECORDS SUMMARY | 2025-06-03 10:21 | XMS_ITS | Encounter Summary ---
Author Organization [facility] Address [address] [place] [address] [place] [phone] Phone Care Team Providers Care Traffic Analyst Name Role Phone Unknown, Unknown Primary Care Provider Criss Mendez MD Primary Care Provider [phone] Reason for Referral * Physical Therapy (Routine) - Closed Specialty Diagnoses / Procedures Referred By Contac t Referred To Contact Physical Therapy Diagnoses Encounter for rehabilitation FX Collar Bone Procedures Evaluate & Treat System, Provider Not In, PhD [id number] [place] [id number] Phone: tel: Referral ID Status Reason Start Date Expiration Date Visits Re quested Visits Authorized [id number] Closed 01/22/2018 08/10/2018 99 99 Encounter Details Date Type Department Care Team (Latest Contact Info) Description 01/15/2018 Transcribe Orders [facility] [address] [place] [address] Gabby Patel PA [address] [place] [address] Encounter for rehabilitation (Primary Dx) Social History Tobacco Use Types Packs/Day Years Used Date Smoking Tobacco: Never Assessed Sex and Gender Information Value Date Recorded Sex Assigned at Not on file Legal Sex Male 7:14 PM EST Gender Identity Not on file Sexual Orientation Not on file documented as of this encounter Plan of Treatment Not on file documented as of this encounter Procedures Procedure Name Priority Date/Time Associated Diagnosis Comments AMB REFERRAL TO [facility] PHYSICAL THERAPY Routine 01/22/2018 5:00 PM EDT Encounter for rehabilitation documented in this encounter Results * Ambulatory referral to [facility] Physical Therapy (01/22/2018 5:00 PM EDT) us Provider Not In System PhD AMB [facility] REFERRALS Fin al Result documented in this encounter Visit Diagnoses Diagnosis Encounter for rehabilitation- Primary documented in this encounter Care Teams Traffic Analyst Relationship Specialty Start Date End Date Unknown, Unknown, MD PCP - General 01/14/18 01/15/18 Criss Mccabe MD [address] [place] [address] [address] [place] [id number] PCP - General Internal Medicine 01/16/18 documented as of this encounter Additional Source Comments The information contained in this document represents components of the legal health record. It is not the complete legal health record.[facility]
--- OUTSIDE RECORDS SUMMARY | 2025-06-03 10:21 | XMS_ITS | Clinical Summary ---
Author Organization [facility] Address [address] [place] [phone] Phone Care Team Providers Care Osteologist Name Role Phone Criss Mccabe MD Primary Care Provider [phone] Allergies No known active allergies Medications cefadroxil (DURICEF) 500 MG capsule Take 1 capsule (500 mg total) by mouth 2 (two) times a day for 10 days. 20 capsule 05/27/2025 Active Active Problems Problem Noted Date Diagnosed Date Chronic pain 05/03/2010 Overview (10/01/2014): chronic pain Encounters Date Type Department Care Team Description 05/27/2025 3:50 PM EDT Office Visit [facility] [address] [address] Citlalli Dominguez PA-C Cellulitis of finger, left (Primary Dx) from Last 3 Months Social History Tobacco Use Types Packs/Day Years Used Date Smoking Tobacco: Never Assessed Education Answer Date Recorded Are you interested in more education? Not on vanessa e 12/05/2022 Are you concerned about learning? Not on file 12/05/2022 No 12/05/2022 No 12/05/2022 Digital Access Answer Date Recorded No 01/06/2023 No 01/06/2023 No 01/06/2023 Reliable internet access at home? Not on file 01/06/2023 Device with a working camera? Not on file Sex and Gender Information Value Date Recorded Sex Assigned at Not on file Legal Sex Male 7:14 PM EST Gender Identity Not on file Sexual Orientation Not on file Last Filed Vital Signs Vital Sign Reading Time Taken Comments Blood Pressure 107/68 05/27/2025 4:23 PM EDT Pulse 85 05/27/2025 4:23 PM EDT Temperature 36.7 C (98 F) 05/27/2025 4:23 PM EDT Respiratory Rate 16 05/27/2025 4:23 PM EDT Oxygen Saturation 98% 05/27/2025 4:23 PM EDT Inhaled Oxygen Concentration - - Weight 65.8 kg (145 lb) 05/27/2025 4:23 PM EDT Height 182.9 cm (6') 05/27/2025 4:23 PM EDT Body Mass Index 19.67 05/27/2025 4:23 PM EDT Plan of Treatment Health Maintenance Due Date Last Done Comments Adult Td,Tdap Booster 1977 LIPID PANEL 1977 DEPRESSION SCREENING 1989 SMOKING Hx and SMOKELESS TOBACCO SCREENING 1990 HEPATITIS C SCREENING 01/01/1996 HIV ONE-TIME SCREENING (18-6 5 YEARS) 01/01/1996 COLOGUARD 2022 COLONOSCOPY 2022 COLORECTAL CANCER SCREENING 2022 FIT TEST 2022 FOBT 2022 SIGMOIDOSCOPY 2022 VIRTUAL COLONOSCOPY 2022 INFLUENZA VACCINE (#1) 2025 COVID-19 VACCINE (3 - 2024-2 6 season) 2025 01/04/2021, 12/14/2020 HEPATITIS A VACCINES Aged Out No long er eligible based on patient's age to complete this topic HIB VACCINES Aged Out No longer eligi ble based on patient's age to complete this topic MENINGOCOCCAL VACCINES (ACWY) Aged Out No longer eligible based on patient's age to complete this topic MENINGOCOCCAL VACCINES (B) Aged Out N o longer eligible based on patient's age to complete this topic PNEUMOCOCCAL VACCINES (0-49 years) Aged Out No longer eligible b ased on patient's age to complete this topic Medical Devices Not on file Insurance BLUE CROSS OUT OF STATE PPO BLUE CROSS OUT OF STATE PPO BLUE CROSS OUT OF STATE PPO BLUE CROSS OUT OF STATE PPO BLUE [facility] OUT OF [facility] PPO BLUE CROSS OUT OF STATE PPO Care Teams Osteologist Relationship Specialty Start Date End Date Criss Mccabe MD [address] [place] [id number] PCP - General Internal Medicine 01/16/18 Additional Source Comments The information contained in this document represents components of the legal health record. It is not the complete legal health record.[facility]
--- OUTSIDE RECORDS SUMMARY | 2025-06-03 10:21 | XMS_ITS | Clinical Summary ---
Author Organization [facility] Address [address] [place] [address] Care Team Providers Care Equipment Maintenance Tech Name Role Phone Unavailable Primary Care Provider Unavailabl e Social History Tobacco Use Types Packs/Day Years Used Date Smoking Tobacco: Never Assessed Sex and Gender Information Value Date Recorded Sex Assigned at Not on file Legal Sex Male 9:05 PM EST Gender Identity Not on file Sexual Orientation Not on file Plan of Treatment Health Maintenance Due Date Last Done Comments Colorectal Cancer Screening: Colonoscopy 1977 Hepatitis B Vaccines (1 of 3 - 19+ 3-dose series) 1996 Cholesterol Screening (Lipid Panel) 09/05/2023 HIV Screening 09/05/2023 Hepatitis C Screening 09/05/2023 Social Influencers of Health Screening 09/05/2023 Depression Screening 08/11/2024 COVID-19 Vaccine (1 - 2023-2 5 season) 2025 Influenza Vaccine (#1) 2025 DTaP,Tdap,and Td Vaccines (2 - Td or Tdap) 08/07/2033 08/07/2023 RSV Immunization Adult Patie nts (1 - 1-dose 75+ series) 2052 HIB Vaccines Aged Out No longer eligi [...] 5 Years) and At-Risk Patients (6 to 49 Years) Aged Out No longer eligi ble based on patient's age to complete this topic RSV Immunization Patients Un israel 20 months Aged Out No longer eligible b ased on patient's age to complete this topic Varicella Vaccines Aged Out No longer eligible based on patient's age to complete this topic
== END 2025-06-03 10:12 | disposition home or self-care (01) ==
LOC: HO.HMCH 09:27
PROVIDERS: PCP Internal Medicine; Visit Provider Internal Medicine
DX: L03.012 Cellulitis of left finger (principal); K29.70 Gastritis, unspecified, without bleeding; G47.00 Insomnia, unspecified; F41.9 Anxiety disorder, unspecified